=== PATIENT | female | born 1955 | race Caucasian/White ===

== ENCOUNTER 2016-04-19 09:59 | Outpatient (CLI) | payer MEDICARE, OTHER | END 2016-04-19 23:59 | disposition home or self-care (01) | LOC: LAB 09:59 → EDSEX 09:59 → LAB 23:59 | PROVIDERS: ATTEND Surgery | DX: Z01.818 Encounter for other preprocedural examination (principal); I70.0 Atherosclerosis of aorta | CPT/HCPCS: 71020-TC ==

== ENCOUNTER 2016-04-25 05:58 | Day surgery (SDC) | payer MEDICARE, OTHER ==
[~2016-04-25] VITALS: Ht 162.6 cm; Wt 78.9 kg
[2016-04-25] MEDS ORDERED: CEFAZOLIN SODIUM/DEXTROSE,ISO 50 ML IV ONE (06:11)
[2016-04-25] MEDS ORDERED: IV LR 1000 ML 1,000 ML ONE (06:11)
[2016-04-25] MEDS ORDERED: NEEDLELESS EST SET LARGE BORE 1 EA INFUS.SET MC ONE (06:12)
[2016-04-25] MEDS ORDERED: IV SET PRIMARY 1 EA INFUS.SET MC ONE (06:12)
[2016-04-25] MEDS ORDERED: SECONDARY IV SET 1 EA INFUS.SET MC ONE (06:12)
[2016-04-25] MEDS ORDERED: BUPIVACAINE 0.5 % PF 150 MG/30 ML VIAL ONE (06:52)
[2016-04-25] MEDS ORDERED: LIDOCAINE 1%-EPI 1:100,000 20 ML VIAL ONE (06:52)
[2016-04-25] MEDS ORDERED: MIDAZOLAM HCL 2 MG/2ML VIAL ONE (07:19)
[2016-04-25] MEDS ORDERED: FENTANYL PF 100MCG/2ML AMPUL ONE (07:19)
[2016-04-25] MEDS ORDERED: ROCURONIUM BROMIDE 50 MG/5 ML ONE (09:38)
[2016-04-25] MEDS ORDERED: SUCCINYLCHOLINE CHLORIDE 20 MG/ML VIAL ONE (09:38)
[2016-04-25] MEDS ORDERED: ACETAMINOPHEN 325 MG TABLET ONE (11:48)
[2016-04-25] MEDS ORDERED: IBUPROFEN 400 MG TABLET PO ONE (12:30)
[2016-04-25] MEDS ORDERED: ACETAMINOPHEN 325 MG TABLET PO ONE (12:30)
[2016-04-25] MEDS ORDERED: GABAPENTIN 300 MG CAPSULE PO ONE (12:30)
== END 2016-04-25 12:35 | disposition home or self-care (01) ==
LOC: DS 05:58
PROVIDERS: ATTEND Surgery
DX: K64.8 Other hemorrhoids (principal); D64.89 Other specified anemias; I10 Essential (primary) hypertension; E11.9 Type 2 diabetes mellitus without complications; F41.9 Anxiety disorder, unspecified; Z90.710 Acquired absence of both cervix and uterus; Z95.2 Presence of prosthetic heart valve
CPT/HCPCS: 0249T ×18; A6402; A6403; J0330; J0690; J1885; J2250; J2405; J2704; J2710; J3010; J3490; J7120; Z7610